=== PATIENT | male | born 1995 | race American Indian/Alaskan Native ===

== ENCOUNTER 2021-07-27 22:19 | Emergency (ER) | payer SELFPAY ==
[2021-07-28] MEDS ORDERED: ACETAMINOPHEN 500 MG TAB PO ONE (01:13)
[2021-07-28] MEDS ORDERED: METOCLOPRAMIDE 10 MG TAB PO ONE (01:13)
[2021-07-28] MEDS ORDERED: predniSONE 20 MG TAB PO ONE (01:13)
[2021-07-28] MEDS ORDERED: diphenhydrAMINE 25 MG CAP PO ONE (01:13)
--- NOTE | 2021-07-28 01:20 | Emergency Department Report ---
ED General Adult HPI - General Chief complaint: Headache Stated complaint: HEADACHE Time Seen by Provider: 07/28/21 01:13 Source: patient Mode of arrival: Ambulatory Limitations: No Limitations - History of Present Illness Initial comments: Patient is a 26-year-old -[place] male with seasonal allergies who presents for frontal headache that radiates to frontal sinuse. Pain is described as sharp pressure and is exacerbated by movement and position. Pain is relieved by nothing tried. Patient denies ear or throat pain. There is no shortness of breath. There is no dizziness. No nausea vomiting or photophobia. This headache is similar to headaches of the past. Patient states usual headache relieved by Percocet p.o. Patient states some cough and postnasal drip. Patient is not COVID vaccinated patient denies suspicious contacts or travel however. Patient is tolerating p.o. intake. And appears nontoxic at this time there is been no fever or chills. Symptoms are rated at 4/10 at this time. - Related Data Previous Rx's Medication Instructions Recorded Last Taken Type Acetaminophen [Acetaminophen TAB] 500 mg PO Q6HR #30 tablet 07/28/21 Unknown Rx Metoclopramide [Reglan] 10 mg PO TID #30 tab 07/28/21 Unknown Rx diphenhydrAMINE [Benadryl CAP] 25 mg PO Q8HR PRN #30 capsule 07/28/21 Unknown Rx Allergies Allergy/AdvReac Type Severity Reaction Status Date / Time No Known Allergies Allergy Unverified 07/28/21 00:51 ED Review of Systems ROS: Stated complaint: HEADACHE Other details as noted in HPI Constitutional: malaise Eyes: denies: eye pain, eye discharge, vision change ENT: congestion. denies: ear pain, throat pain, hearing loss, epistaxis Respiratory: denies: cough, shortness of breath, wheezing Cardiovascular: denies: chest pain, palpitations Endocrine: no symptoms reported Gastrointestinal: denies: abdominal pain, nausea, vomiting, diarrhea Genitourinary: denies: urgency, dysuria, frequency Musculoskeletal: denies: back pain, joint swelling, arthralgia Skin: denies: rash, lesions Neurological: headache, vertigo. denies: weakness, numbness, paresthesias, confusion Psychiatric: denies: anxiety, depression Hematological/Lymphatic: denies: easy bleeding, easy bruising ED Past Medical Hx - Past Medical History Previous Medical History?: No - Medications Home Medications: Home Medications Medication Instructions Recorded Confirmed Last Taken Type Acetaminophen [Acetaminophen TAB] 500 mg PO Q6HR #30 tablet 07/28/21 Unknown Rx Metoclopramide [Reglan] 10 mg PO TID #30 tab 07/28/21 Unknown Rx diphenhydrAMINE [Benadryl CAP] 25 mg PO Q8HR PRN #30 capsule 07/28/21 Unknown Rx ED Physical Exam - General Limitations: No Limitations General appearance: alert, in no apparent distress - Head Head exam: Present: normocephalic, normal inspection - Eye Eye exam: Present: PERRL, EOMI. Absent: conjunctival injection, nystagmus Pupils: Present: normal accommodation - ENT ENT exam: Present: normal orophraynx, mucous membranes moist, TM's normal bilaterally, normal external ear exam, other (Bilateral frontal sinus pain to deep palpation. There is no erythema no swelling. Nares are boggy clear postnasal drip no lesions no exudate. No stridor or wheezing airway is clear.) - Neck Neck exam: Present: normal inspection, full ROM. Absent: tenderness, lym phadenopathy, thyromegaly - Respiratory Respiratory exam: Present: normal lung sounds bilaterally. Absent: respiratory distress, wheezes, stridor, chest wall tenderness - Cardiovascular Cardiovascular Exam: Present: regular rate, normal rhythm, normal heart sounds. Absent: systolic murmur, diastolic murmur, rubs, gallop - GI/Abdominal GI/Abdominal exam: Present: soft, normal bowel sounds. Absent: distended, tenderness, bruit, hernia - Rectal Rectal exam: Present: deferred - Extremities Exam Extremities exam: Present: normal inspection, full ROM, normal capillary refill - Back Exam Back exam: Present: normal inspection. Absent: CVA tenderness (R), CVA tenderness (L) - Neurological Exam Neurological exam: Present: alert, oriented X3, CN II-XII intact, normal gait, reflexes normal. Absent: motor sensory deficit - Expanded Neurological Exam Expanded Patient oriented to: Present: person, place, time Speech: Present: fluid speech Cranial nerves: EOM's Intact: Normal, Gag Reflex: Normal Cerebellar function: Finger to Nose: Normal Motor strength exam: RUE: 5, LUE: 5, RLE: 5, LLE: 5 Best Eye Response ([place]): (4) open spontaneously Best Motor Response ([place]): (6) obeys commands Best Verbal Response ([place]): (5) oriented [place] Total: 15 - Psychiatric Psychiatric exam: Present: normal affect, normal mood - Skin Skin exam: Present: warm, dry, intact, normal color. Absent: rash ED Course Vital Signs 07/28/21 00:54 Temperature 99.7 F H Pulse Rate 88 Respiratory 18 Rate Blood Pressure 134/72 O2 Sat by Pulse 99 Oximetry ED Medical Decision Making - Medical Decision Making This is a sinus headache improved with medications given in ED. Plan DC to home, follow-up with your doctor in 2 to 3 days. Return to emergency department should symptoms worsen. Patient verbalized agreement and understanding with discharge plan. Patient DC'd home in stable condition at this time. Critical care attestation.: If time is entered above; I have spent that time in minutes in the direct care of this critically ill patient, excluding procedure time. ED Disposition Clinical Impression: Headache Qualifiers: Headache type: unspecified Headache chronicity pattern: acute headache Intractability: not intractable Qualified Code(s): R51.9 - Headache, unspecified Disposition: HOME / SELF CARE / HOMELESS Is pt being admited?: No Does the pt Need Aspirin: No Condition: Stable Instructions: Cluster Headache, [id number] Additional Instructions: Take medications as prescribed, follow-up with your doctor in 2 to 3 days. Return to emergency department should symptoms worsen. Prescriptions: Acetaminophen [Acetaminophen TAB] 500 mg PO Q6HR #30 tablet diphenhydrAMINE [Benadryl CAP] 25 mg PO Q8HR PRN #30 capsule PRN Reason: Headache Metoclopramide [Reglan] 10 mg PO TID #30 tab Referrals: VANDANA PEREIRA MD [Staff Physician] - 3-5 Days Forms: Work/School Release Form(ED) Time of Disposition: 02:28
[2021-07-28 02:36] VITALS: BP 138/95
== END 2021-07-28 02:35 | disposition home or self-care (01) ==
LOC: ED 22:19
DX: R51.9 Headache, unspecified (principal)
CPT/HCPCS: 99282